=== PATIENT | female | born 1980 | race Caucasian/White ===

== ENCOUNTER 2018-04-07 10:07 | Emergency (ER) | payer SELFPAY ==
[2018-04-07] MEDS ORDERED: Ibuprofen PED LIQ 100 MG/5 ML UDC PO ONE (11:44)
[2018-04-07] MEDS ORDERED: Ibuprofen ADULT LIQ* 600 MG/30 ML UDC PO ONE (12:00)
--- NOTE | 2018-05-19 09:18 | UC ---
Yulisa Swenson Emily, scribed for Eugenie Vazquez MD on 04/07/18 at 1111 . Throat Pain/Nasal Darryl HPI - HPI Summary HPI Summary: This patient is a 37 year old MF presenting to [facility] accompanied by with a chief complaint of sore throat that began 3 days ago. The patient rates the pain 10/10 in severity. Symptoms aggravated by swallowing. Symptoms alleviated by nothing. Patient reports headache, fever, and ear pain. Patient denies nausea, vomiting, and rash. - History of Current Complaint Chief Complaint: UCGeneralIllness Stated Complaint: SORE THROAT Time Seen by Provider: 04/07/18 10:48 Hx Obtained From: Patient Hx Last Menstrual Period: 04/04/18 ?: No Onset/Duration: Sudden Onset, Lasting Days, Still Present Severity: Severe Pain Intensity: 10 Pain Scale Used: 0-10 Numeric Associated Signs & Symptoms: Positive: Fever, Other - Positive headache and ear pain. Negative: Vomiting, Rash - Allergies/Home Medications Allergies/Adverse Reactions: Allergies Allergy/AdvReac Type Severity Reaction Status Date / Time No Known Allergies Allergy Verified 04/07/18 10:40 Home Medications: Home Medications Ibuprofen TAB* [Motrin TAB* 800 MG] 800 mg PO Q12HR PRN 04/07/18 [History Confirmed 04/07/18] PMH/Surg Hx/FS Hx/Imm Hx Previously Healthy: Yes Endocrine History: Other Other Endocrine History: Negative diabetes Respiratory History: Other Other Respiratory History: Negative asthma - Surgical History Surgical History: None - Family History Known Family History: Negative: Diabetes - Social History Occupation: Employed Full-time Lives: With Family Alcohol Use: None Substance Use Type: None Smoking Status (MU): Never Smoked Tobacco Review of Systems Constitutional: Fever Skin: Other - Negative rash ENT: Sore Throat, Ear Ache Gastrointestinal: Other - Negative nausea and vomiting Neurological: Headache All Other Systems Reviewed And Are Negative: Yes Physical Exam Triage Information Reviewed: Yes Vital Signs: Initial Vital Signs Temp 99.9 F 04/07/18 10:42 Pulse 100 04/07/18 10:42 Resp 16 04/07/18 10:42 BP 117/73 04/07/18 10:42 Pulse Ox 100 04/07/18 10:42 Vital Signs Reviewed: Yes Eye Exam: Normal ENT: Positive: Other - Uvula midline. Tonsils red and swollen, mild exudate. tongue not elevated. Neck supple, no meningismus appreciated. Neck exam: Normal Neck: Positive: Supple, Nontender, No Lymphadenopathy Respiratory Exam: Normal Respiratory: Positive: Other: - No dyspnea, no tachypnea, normal respiratory rate Cardiovascular Exam: Normal Cardiovascular: Positive: RRR, Other: - Good general skin color, good capillary refill Abdominal Exam: Normal Abdomen Description: Positive: Nontender, No Organomegaly, Soft Bowel Sounds: Positive: Present Musculoskeletal Exam: Normal Musculoskeletal: Positive: Strength Intact Neurological Exam: Normal Neurological: Positive: Other: - Nonfocal, grossly intact Psychological Exam: Normal Psychological: Positive: Other: - Conversing easily and appropriately Skin Exam: Normal Skin: Positive: Other - No visible or reported rash Throat Pain/Nasal Course/Dx - Course Course Of Treatment: RST +. Reviewed coa /tx plan. Questions as posed answered to the best of my ability. - Differential Dx/Diagnosis Provider Diagnoses: Acute pharyngitis, + Strep. Discharge - Sign-Out/Discharge Documenting (check all that apply): Patient Departure - Discharge Plan Condition: Stable Disposition: HOME Prescriptions: Amoxicillin/Clavulanate TAB* [Augmentin TAB 875*] 875 mg PO BID #20 tab predniSONE TAB* [Deltasone 20 MG TAB*] 40 mg PO DAILY #6 tab Patient Education Materials: Strep Throat (ED), Tonsillitis (ED) Forms: *Work Release Referrals: No Primary Care Phys,NOPCP [Primary Care Provider] - Additional Instructions: Follow up with a primary care physician, as soon as possible. Please seek medical attention for worse or new problems in the meantime. Please try to drink as much fluid as possible. Eat YOGURT every day, especially while taking antibiotics. - Billing Disposition and Condition Condition: STABLE Disposition: Home The documentation as recorded by the Yulisa garland Emily accurately reflects the service I personally performed and the decisions made by me, Eugenie Vazquez MD.
== END 2018-04-07 12:07 | disposition home or self-care (01) ==
LOC: UCEAST 10:07 → EDBD 10:07 → UCEAST 12:07
DX: J02.0 Streptococcal pharyngitis (principal)
CPT/HCPCS: 87651; 99202; A9270-GY; G0463

== ENCOUNTER 2018-06-08 18:17 | Emergency (ER) | payer SELFPAY ==
[2018-06-08 19:14] VITALS: BP 118/77
--- NOTE | 2018-06-08 20:06 | UC ---
Complaint Female HPI - HPI Summary HPI Summary: 37 y/o Stateless speaking female presents to the urgent care accompany by c/o burning or frequency on urination for the past 4 days. I translated. Pt reports about 2 weeks she felt some body aches w/ chills, then she has felt thirsty and mild dizziness at times. Then 4 days ago she started w/ frequency and burning on urination and mild pelvic pressure. Pain is 8/10 on urination. She has also been constipated and now developed some irritation on her anus s/p hard BM. Pt states today she has been so thirsty that she drank a Coca cola and Gatorade about 1 hrs ago. Pt denies parents w/ DM type II, but her sister has been recently Dx w/ DM. Pt states she doesn't have insurance and not PCP. Pr denies fever, SOB, BOWMAN, chest pain, abdominal pain, N/V/D. - History Of Current Complaint Chief Complaint: UCGU Stated Complaint: BURNING URINATION Time Seen by Provider: 06/08/18 19:56 Hx Obtained From: Patient Hx Last Menstrual Period: 05/10/2018 ?: No Onset/Duration: Gradual Onset, Lasting Days - 4 days, Still Present, Worse Since - today Timing: Intermittent Severity Initially: Mild Severity Currently: Moderate Pain Intensity: 8 Pain Scale Used: 0-10 Numeric Character: Burning Aggravating Factor(s): Urination Alleviating Factor(s): Nothing Associated Signs And Symptoms: Negative: Fever, Back Pain, Vaginal Discharge, Nausea, Vomiting(# Of Episodes =), Genital Swelling, Genital Blisters Related Hx: - 3, Para - 3 - Risk Factors Ectopic Risk Factor: Negative Ovarian Torsion Risk Factor: Negative - Allergies/Home Medications Allergies/Adverse Reactions: Allergies Allergy/AdvReac Type Severity Reaction Status Date / Time No Known Allergies Allergy Verified 06/08/18 19:13 PMH/Surg Hx/FS Hx/Imm Hx Previously Healthy: Yes - Pt denies PMHX - Surgical History Surgical History: Yes Surgery Procedure, Year, and Place: 2010 - Family History Known Family History: Positive: Diabetes - sister - Social History Occupation: Employed Full-time - in a farm Lives: With Family Alcohol Use: None Substance Use Type: None Smoking Status (MU): Never Smoked Tobacco Review of Systems Constitutional: Fatigue, Other - thirsty Skin: Negative Eyes: Negative ENT: Negative Respiratory: Negative Cardiovascular: Negative Gastrointestinal: Other - constipation w/ anal irritation Genitourinary: Dysuria, Frequency, Urgency, Other - pelvic pressure Motor: Negative Neurovascular: Negative Musculoskeletal: Negative Neurological: Negative Psychological: Negative Is Patient Immunocompromised?: No All Other Systems Reviewed And Are Negative: Yes Physical Exam - Summary Physical Exam Summary: Vital signs: reviewed General: well developed, well nourished female sitting in the examining table w /o any acute distress. Head: Normocephalic, no lesions. Eyes: PERRLA, EOM's full, conjunctiva clear, fundi grossly normal. Ears: EAC's clear, TM's normal. Nose: Mucosa normal, no obstruction. Throat: Clear, no exudates, no lesions. Neck: Supple, no masses, no thyromegaly, no bruits. Chest: Lungs clear, no rales, no rhonchi, no wheezes. Heart: RR, no murmurs, no rubs, no gallops. Abdomen Description: Positive: Nontender, Flat with no distention. No surface trauma, scars, incisions. normal bowel sounds present in all four quadrants. No tenderness, guarding, rigidity to palpation. No masses palpated, no pulsation in epigastric area. No organomegaly. Negative Glenvil signs. No periumbilical tenderness. No rebound in the lower quadrants. NT over McBurneys point. Good femoral pulses bilaterally. No hernia noted. No CVAT bilaterally Rectal:Sphincter tone normal. No rectal wall tenderness. Positive small external hemorrhoid around 12 o'clock, non tender to palpation, no bleeding observed. Mild erythema around anus. Pelvic: I was assited /by Nurse Radha : External genitalia within normal limits. There is no lesions there is no masses noted. Speculum exam: The vaginal evliz are within normal limits w/ normal clear vaginal discharge, no the lesions or rashes. The cervix is closed with no lesions or masses. There is no CMT's, and no adnexal masses. Sample sent to Lab for G/C and Affirm panel. Back: Normal curvature, no tenderness. Extremities: FROM, no deformities, no edema, no erythema. Neuro: Physiological, no localizing findings. Skin: Normal, no rashes, no lesions noted. Triage Information Reviewed: Yes Vital Signs: Initial Vital Signs Temp 98.1 F 06/08/18 19:09 Pulse 65 06/08/18 19:09 Resp 18 06/08/18 19:09 BP 118/77 06/08/18 19:09 Pulse Ox 100 06/08/18 19:09 Complaint Female Dx - Course Course Of Treatment: 37 y/o Stateless speaking female presents to the urgent care accompany by c/o burning or frequency on urination for the past 4 days. I translated. Pt reports about 2 weeks she felt some body aches w/ chills , then she has felt thirsty w/ mild dizziness at times. Then 4 days ago she started w/ frequency and burning on urination and mild pelvic pressure. Pain is 8/10 on urination. She has also been constipated and now developed some irritation on her anus s/p hard BM. Pt states today she has been so thirsty that she drank a Coca cola and Gatorade about 1 hrs ago. Pt denies parents w/ DM type II, but her sister has been recently Dx w/ DM. Pt states she doesn't have insurance and not PCP. Pr denies fever, SOB, BOWMAN, chest pain, abdominal pain , N/V/D. She has not taking anything to alleviate symptoms.PE: WNL exept for positive external hemorroids on examination. UA ordered: +trace ketone, and 3+ glucose and Blood. Pt is probably starting her period. FSG ordered since glucose on urine. FSmg/dl. Pt probably w/ new onset of DM Type II. Pt may need fluids and full blood work up. Pt w/ o a PCP or insurance. Pt's symptoms discusses w/ Dr Zhang sinha he recommended to Rx Metformin PO 500mg BID and f/u w / [facility] as possible for further management. Pt educated on DM type II. Strongly advised to increase fluid hydration w/ water and Rx Metformin PO, Miralax PO for her constipation and Prepartion H oint to alleviate anal irritation from her external hemorroids. Also Rx Pyridium PO for her Dysuria. Urine sent for culture to r/o any abdnomality. Pt will be notified. Pt also Advised on dietary modifications. Strongly advised if symptoms worsen and she develops abdominal pain, dizziness to go immediately to the er for further management. Pt understood and agreed w/ plan of care. Pt left clinic hemodynamically stable, A&OX3 - Differential Dx/Diagnosis Differential Diagnosis/HQI/PQRI: Appendicitis, Cervicitis, Ovarian Cyst, Ovarian Torsion, Pelvic Inflammatory Disease, , Renal Colic, Sexually Transmitted Disease, Ureteral Stone, Urinary Tract Infection, Other - constipation. DM type II, hemorrhoids Provider Diagnoses: 1- Dysuria. 2- Hyperglycemia r/o first onset DM type II. 3 - Constipation. 4-External hemorrhoids - Physician Notifications Discussed Patient Care With: Burton Holcomb - Dr Salazar agreed w/ Pt's plan of care. Discharge - Sign-Out/Discharge Documenting (check all that apply): Patient Departure - D/C home - Discharge Plan Condition: Stable Disposition: HOME Prescriptions: metFORMIN* [Glucophage 500 MG TAB *] 500 mg PO BID #60 tab Phenazopyridine TAB* [Pyridium 100 mg TAB*] 100 mg PO TID #6 tab Phenyleph/Mineral Oil/Petrolat [Preparation H] 1 oin ID TID #1 oin Polyethylene Glycol 3350* [Miralax*] 17 gm PO DAILY #1 bottle Patient Education Materials: Type 2 Diabetes in Adults: New Diagnosis (ED), Dysuria (ED), Hemorrhoids (ED), Constipation (ED) Print Language: JAPANESE Referrals: [facility]IAN REFERRAL [Outside] - 1 Day Additional Instructions: 1- [place] glucosa esta elevada 362mg/dl y las orina tambien positiva por glucosa. Por favor incremente el agua. Por favor tome el medicamento de Metformin PO para Diabetes tipo II y jaky de inmediato un Medico primario en la Clinic q le estamos recomendando o del [facility] network para q le abisai examenes de juventino y continue con un tratamiento apropiado para la Diabetes. 2- Por favor tome Pyridium PO para maida los simptomas urinarios. Marva cultura bowman sido enviada al laboratorio usted sera notificado del los resultados. 3- tome el Miralax PO con se indico para mejorar la Constipacion. Por favor coma vegetales y fibra. 4- Applique la crema en [place] recto para mejorar la irritacion en el rectum. 5-Si desarolla dolor abdominal rose marie o mareo por favor vaya a la emergencia para q la traten de inmediato. - Billing Disposition and Condition Condition: STABLE Disposition: Home
== END 2018-06-08 21:05 | disposition home or self-care (01) ==
LOC: UCEAST 18:17
DX: R30.0 Dysuria (principal); R73.9 Hyperglycemia, unspecified; K59.00 Constipation, unspecified; K64.4 Residual hemorrhoidal skin tags
CPT/HCPCS: 81003; 84702; 87086; 99212; G0463